=== PATIENT | female | born 1990 | race Caucasian/White ===

== ENCOUNTER 2017-01-24 19:43 | Emergency (ER) | payer MEDICAID ==
[~2017-01-24] VITALS: Ht 165.1 cm; Wt 88.5 kg
[2017-01-24] MEDS ORDERED: ACETAMINOPHEN 325 MG TABLET PO ONE (20:30)
[2017-01-24] MEDS ORDERED: ACETAMINOPHEN ES 500 MG TABLET ONE (20:36)
[2017-01-24 20:43] LABS: KETONES,URINE 2+ (NEGATIVE); LEUKOCYTE ESTERASE ,URINE NEGATIVE (NEGATIVE); PH,URINE 5.5 (5.0-8.0)
[2017-01-24 20:45] LABS: ADD UA MICROSCOPIC YES
[2017-01-24 20:46] LABS: PREGNANCY TEST URINE QUAL NEGATIVE (NEGATIVE)
[2017-01-24 20:51] LABS: ADD URINE CULTURE NO; RBC,URINE 0-2 /HPF (0-2)
[2017-01-24 23:29] VITALS: BP 114/71
== END 2017-01-24 23:31 | disposition home or self-care (01) ==
LOC: ER 19:47
DX: R10.2 Pelvic and perineal pain (principal); E03.9 Hypothyroidism, unspecified; Z88.0 Allergy status to penicillin; Z88.1 Allergy status to other antibiotic agents
CPT/HCPCS: 81001; 84703; 87210; 87491; 87591; 99285; A4606; Z7610; 81000-TC

== ENCOUNTER 2017-01-27 17:43 | Emergency (ER) | payer MEDICAID ==
[~2017-01-27] VITALS: Ht 170.2 cm; Wt 93.0 kg
[2017-01-27] MEDS ORDERED: LORAZEPAM INJ 2 MG/ML VIAL ONE (17:56)
[2017-01-27] MEDS ORDERED: LORAZEPAM INJ 2 MG/ML VIAL IVP ONE (18:00)
[2017-01-27 18:15] LABS: BASOPHILS # (AUTO) 0.1 /CMM (0.0-0.2); DIFF TOTAL % 100 %; EOSINOPHILS # (AUTO) 0.1 /CMM (0.0-0.7); EOSINOPHILS % (AUTO) 1.2 % (0.0-6.0); HEMATOCRIT 42 % (33-45); LYMPHOCYTES # (AUTO) 1.3 /CMM (0.8-4.8); LYMPHOCYTES % (AUTO) 23.2 % (20.0-44.0); MEAN CORPUSCULAR HEMOGLOBIN 30 PG (26.0-33.0); MEAN CORPUSCULAR HGB CONC 33 g/dl (31.0-36.0); MEAN CORPUSCULAR VOLUME 90 fL (82-100); MONOCYTES # (AUTO) 0.4 /CMM (0.1-1.30); MONOCYTES % (AUTO) 6.4 % (2.0-12.0); NEUTROPHILS # (AUTO) 3.9 /CMM (1.8-8.9); NEUTROPHILS % (AUTO) 68.2 % (43.0-81.0); PLATELET COUNT (AUTO) 206 /CMM (150-450); RED BLOOD CELL COUNT(AUTO) 4.67 MIL/uL (4.0-5.2); WHITE BLOOD COUNT (AUTO) 5.8 K/uL (4.3-11.0)
[2017-01-27 18:24] LABS: CALCIUM, SERUM 8.7 mg/dL (8.5-10.1); CREATININE 0.8 mg/dL (0.6-1.3); POTASSIUM 4.1 mmol/L (3.5-5.1)
[2017-01-27] MEDS ORDERED: LamoTRIgine 100 MG TABLET PO STA (19:39)
[2017-01-27 19:52] VITALS: BP 127/73
== END 2017-01-27 19:52 | disposition home or self-care (01) ==
LOC: ER 17:44
DX: G40.909 Epilepsy, unspecified, not intractable, without status epilepticus (principal); E55.9 Vitamin D deficiency, unspecified; E03.9 Hypothyroidism, unspecified; R51 Headache; M25.551 Pain in right hip; Z88.0 Allergy status to penicillin; Z88.1 Allergy status to other antibiotic agents
CPT/HCPCS: 36415; 72170; 80048; 84703; 85025; 96374; 99285; A4606; J2060; Z7610